=== PATIENT | female | born 2000 | race Caucasian/White ===

== ENCOUNTER → 2020-01-09 | Emergency (ER) | payer SELFPAY ==
[~2020-01-09] VITALS: Ht 172.7 cm; Wt 63.5 kg
[~2020-01-09] MED LIST: MORPHINE SULFATE 4 MG/ML SYR/VIAL IV ONE; ONDANSETRON HCL 4 MG/2 ML VIAL IV ONE
[2020-01-09 21:52] VITALS: BP 140/85
== END | disposition home or self-care (01) ==
LOC: EDUNIT# 20:13 → EDBD 20:32 → ER 20:39
DX: S52.571A Other intraarticular fracture of lower end of right radius, initial encounter for closed fracture (principal); V43.52XA Car driver injured in collision with other type car in traffic accident, initial encounter; Y93.89 Activity, other specified; Y92.488 Other paved roadways as the place of occurrence of the external cause; Y99.8 Other external cause status
CPT/HCPCS: 29125; 73110; 96374; 96375; 99284; J2270; J2405

== ENCOUNTER 2021-09-05 11:35 | Emergency (ER) | payer MEDICAID ==
[~2021-09-05] VITALS: Ht 172.7 cm; Wt 71.2 kg
[2021-09-05 14:01] VITALS: BP 132/84
== END 2021-09-05 14:17 | disposition home or self-care (01) ==
LOC: ER 11:35
DX: Z00.00 Encounter for general adult medical examination without abnormal findings (principal); Z20.822 Contact with and (suspected) exposure to COVID-19
CPT/HCPCS: 36415; 87426